=== PATIENT | female | born 1980 | race Caucasian/White ===

== ENCOUNTER 2017-07-21 07:07 | Outpatient (CLI) | payer BC | END 2017-07-21 07:08 | disposition home or self-care (01) | LOC: BICMAMMO 07:07 | PROVIDERS: ATTEND Obstetrics & Gynecology | DX: N63.10 Unspecified lump in the right breast, unspecified quadrant (principal) | CPT/HCPCS: 77066; G0204; G0279 ==

== ENCOUNTER 2017-12-08 07:47 | Outpatient (CLI) | payer BC ==
[2017-12-08] MEDS ORDERED: Gadobenate Dimeglumine 529 MG/1 ML (20ML VIAL) ONE (13:17)
== END 2017-12-08 07:48 | disposition home or self-care (01) ==
LOC: BICMRI 07:47
PROVIDERS: ATTEND Internal Medicine
DX: G43.909 Migraine, unspecified, not intractable, without status migrainosus (principal)
CPT/HCPCS: 70553; A9579

== ENCOUNTER 2019-10-20 08:21 | Outpatient (CLI) | payer BC ==
--- NOTE | 2019-10-20 09:02 | MMO ---
Bilateral MAMMO Bilat Diag [facility]. CLINICAL HISTORY: Patient is 39 years old and is seen for diagnostic exam and palpable abnormality in the right breast at 2 o'clock. The patient has the following family history of breast cancer: 2 paternal aunts. The patient has no personal history of cancer. 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 VIEWS: The views performed were: bilateral craniocaudal with tomosynthesis; bilateral mediolateral oblique with tomosynthesis; and bilateral mediolateral with tomosynthesis. FILMS COMPARED: The present examination has been compared to prior imaging studies performed at [facility] on 07/21/2017 and 10/20/2019. This study has been interpreted with the assistance of computer-aided detection. MAMMOGRAM FINDINGS: The breasts are extremely dense, which may lower the sensitivity of mammography. There is an oval mass with obscured margins seen in the upper-outer region of the right breast. This corresponds to the region of palpable concern. Sonographic interrogation of this region demonstrates findings typical for fibroadenoma. In the left breast, there are no suspicious masses, calcifications or areas of architectural distortion. IMPRESSION: MASS IN THE RIGHT BREAST IS PROBABLY BENIGN. SIX MONTH FOLLOW UP ULTRASOUND IS RECOMMENDED. THE RESULTS OF THIS EXAM WERE SENT TO THE PATIENT. ACR BI-RADS Category 3 - Probably benign finding - short interval follow-up suggested. [facility] will notify the patient of the need for additional imaging services. MAMMOGRAPHY NOTE: 1. A negative mammogram report should not delay a biopsy if a dominant of clinically suspicious mass is present. 2. Approximately 10% to 15% of breast cancers are not detected by mammography. 3. Adenosis and dense breasts may obscure an underlying neoplasm. Reported by: SADIE HARE MD Electonically Signed: [id number]
--- NOTE | 2019-10-20 09:05 | MMO ---
Right US Breast Limited Rt. CLINICAL HISTORY: Patient is 39 years old and is seen for . 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 VIEWS: The views performed were: . FILMS COMPARED: The present examination has been compared to prior imaging studies performed at [facility] on 07/21/2017 and 10/20/2019. This study has been interpreted with the assistance of computer-aided detection. RIGHT BREAST ULTRASOUND FINDINGS: There is a hypoechoic oval solid mass with circumscribed margins and normal sound transmission measuring 14 millimeters seen in the right breast at 2 o'clock. Findings are typical for fibroadenoma. IMPRESSION: SOLID MASS IN THE RIGHT BREAST IS PROBABLY BENIGN. FOLLOW-UP IN 6 MONTHS IS RECOMMENDED. THE RESULTS OF THIS EXAM WERE SENT TO THE PATIENT. ACR BI-RADS Category 3 - Probably benign finding - short interval follow-up suggested. [facility] will notify the patient of the need for additional imaging services. MAMMOGRAPHY NOTE: 1. A negative mammogram report should not delay a biopsy if a dominant of clinically suspicious mass is present. 2. Approximately 10% to 15% of breast cancers are not detected by mammography. 3. Adenosis and dense breasts may obscure an underlying neoplasm. Reported by: SADIE HARE MD Electonically Signed: [id number]
== END 2019-10-20 08:22 | disposition home or self-care (01) ==
LOC: BICMAMMO 08:21
PROVIDERS: ATTEND Obstetrics & Gynecology
DX: N63.11 Unspecified lump in the right breast, upper outer quadrant (principal)
CPT/HCPCS: 77066; G0279

== ENCOUNTER 2020-05-22 07:58 | Outpatient (CLI) | payer BC ==
--- NOTE | 2020-05-22 09:59 | ULT ---
ULTRASOUND RIGHT BREAST: HISTORY: Right breast palpable mass. COMPARISON: Ultrasound 10/20/2019. FINDINGS: Real-time, atkins scale, and color evaluation of the right breast was performed. Palpable abnormality at 2 o'clock 7 cm from the nipple superficial corresponding to a previously seen mass. This has not significantly grown and has characteristics of a benign fibroadenoma. IMPRESSION: BIRADS category 3: likely benign. Followup ultrasound and mammogram in 6 months time is recommended to confirm stability. POS: OFF
== END 2020-05-22 07:59 | disposition home or self-care (01) ==
LOC: BICULT 07:58
PROVIDERS: ATTEND Obstetrics & Gynecology
DX: N63.10 Unspecified lump in the right breast, unspecified quadrant (principal)

== ENCOUNTER 2020-12-04 08:31 | Outpatient (CLI) | payer BC | END 2020-12-04 08:32 | disposition home or self-care (01) | LOC: BICMAMMO 08:31 | PROVIDERS: ATTEND Internal Medicine | DX: N63.12 Unspecified lump in the right breast, upper inner quadrant (principal); Z80.3 Family history of malignant neoplasm of breast | CPT/HCPCS: 77066; G0279 ==

== ENCOUNTER 2021-05-10 14:40 | Outpatient (CLI) | payer BC ==
[2021-05-10 16:30] LABS: Mean Corpuscular HGB CONC 33.5 g/dL (32.0-36.0); Mean Corpuscular Hemoglobin 29.7 pg (27.0-33.0); Mean Corpuscular Volume 88.6 fl (81.6-98.3); Mean Platelet Volume 10.6 fl (7.4-10.4); Platelet Count 250 10x3/uL (150-450); RBC Distribution Width 12.6 % (11.5-14.5); Red Blood Cell (RBC) Count 4.38 10x6/uL (3.90-5.03); White Blood Cell (WBC) Count 7.7 10x3/uL (3.5-10.5)
[2021-05-10 16:33] LABS: Anion Gap 13 mmol/L (10-20); BUN (Urea Nitrogen) 13 mg/dL (7.0-18.7); Calc. Creatinine Clearance 0 mL/min (70-130); Calcium 9.9 mg/dL (7.8-10.44); Carbon Dioxide 23 mmol/L (22-29); Chloride 107 mmol/L (98-107); Glucose 90 mg/dL (70-105); Potassium 4.1 mmol/L (3.5-5.1); Sodium 139 mmol/L (136-145)
[2021-05-10 16:36] LABS: INR-International Normal Ratio 1.1; PTT 26.7 sec (22.0-33.0); Prothrombin Time 11.6 sec (9.5-12.1)
[2021-05-11 00:54] LABS: SARS-CoV-2 PCR by NAA Not Detected (NotDetected)
== END 2021-05-10 14:41 | disposition home or self-care (01) ==
LOC: LABBT 14:40
DX: Z01.812 Encounter for preprocedural laboratory examination (principal); Z20.822 Contact with and (suspected) exposure to COVID-19; N20.1 Calculus of ureter; R35.0 Frequency of micturition
CPT/HCPCS: 80048; 81001; 85027; 85610; 85730; 87086; U0003; U0005

== ENCOUNTER 2021-05-15 08:09 | Day surgery (SDC) | payer BC ==
[2021-05-14 10:42] VITALS: BMI 29.6
[2021-05-15] MEDS ORDERED: Levofloxacin 500 mg/D5W 100 ml Premix Bag ONE (08:50)
[2021-05-15] MEDS ORDERED: Fentanyl 100 MCG/2 ML VIAL ONE ×2 (11:45→13:22)
[2021-05-15] MEDS ORDERED: Midazolam HCl 2 mg/2 ml Vial ONE (11:45)
[2021-05-15] MEDS ORDERED: Iothalamate Meglumine 60% 50 ML VIAL FS ONE (11:46)
[2021-05-15] MEDS ORDERED: Lidocaine 1% PF 5 ML VIAL ONE (11:57)
[2021-05-15] MEDS ORDERED: Dexamethasone 20 MG/5 ML VIAL ONE (11:57)
[2021-05-15] MEDS ORDERED: Ondansetron PF 4 MG/2 ML Vial ONE ×2 (11:57→14:59)
[2021-05-15] MEDS ORDERED: PROPOFOL 200 MG/20 ML VIAL ONE (11:57)
[2021-05-15] MEDS ORDERED: Oxybutynin 5 MG TAB ONE (13:11)
[2021-05-15] MEDS ORDERED: Phenazopyridine HCl 100 MG TAB ONE (13:12)
[2021-05-15] MEDS ORDERED: Promethazine HCl 25 MG/ML VIAL ONE (13:23)
[2021-05-15] MEDS ORDERED: HYDROcodone/Acetaminophen 5/325 mg Tablet ONE (14:51)
[2021-05-15] MEDS ORDERED: Scopolamine 1.5 mg/72 hour Patch ONE (15:57)
[2021-05-15] MEDS ORDERED: Ketorolac Tromethamine 30 MG/ML VIAL ONE (15:57)
[2021-05-15] MEDS ORDERED: traMADol HCl 50 MG TAB ONE (16:09)
== END 2021-05-15 16:30 | disposition home or self-care (01) ==
LOC: SDC 08:09
PROVIDERS: ATTEND Urology
PROC: 0T768DZ Dilation of Right Ureter with Intraluminal Device, Via Natural or Artificial Opening Endoscopic (ICD-10-PCS; principal; 2021-05-15)
PROC: 0TC38ZZ Extirpation of Matter from Right Kidney Pelvis, Via Natural or Artificial Opening Endoscopic (ICD-10-PCS; principal; 2021-05-15)
DX: N20.2 Calculus of kidney with calculus of ureter (principal); G43.709 Chronic migraine without aura, not intractable, without status migrainosus; Z79.899 Other long term (current) drug therapy; Z88.8 Allergy status to other drugs, medicaments and biological substances
CPT/HCPCS: 74018; 74420; 82365; 88300; C2617; J1100; J1885; J1956; J2250; J2405; J2550; J2704; J3010; Q9961

== ENCOUNTER 2021-12-13 10:25 | Outpatient (CLI) | payer BC | END 2021-12-13 10:26 | disposition home or self-care (01) | LOC: BICMAMMO 10:25 | PROVIDERS: ATTEND Internal Medicine | DX: N63.12 Unspecified lump in the right breast, upper inner quadrant (principal) | CPT/HCPCS: 77066; G0279 ==

== ENCOUNTER 2022-09-26 08:51 | Outpatient (CLI) | payer BC | END 2022-09-26 08:52 | disposition home or self-care (01) | LOC: BICRAD 08:51 | PROVIDERS: ATTEND Family Medicine | DX: N20.0 Calculus of kidney (principal) | CPT/HCPCS: 74018 ==

== ENCOUNTER 2023-09-16 11:23 | Outpatient (CLI) | payer BC | END 2023-09-16 11:24 | disposition home or self-care (01) | LOC: SCSRAD 11:23 | PROVIDERS: ATTEND Urology | DX: N20.0 Calculus of kidney (principal); R35.0 Frequency of micturition | CPT/HCPCS: 74018 ==

== ENCOUNTER 2023-09-25 15:29 | Outpatient (CLI) | payer BC | END 2023-09-25 15:30 | disposition home or self-care (01) | LOC: BICMAMMO 15:29 | PROVIDERS: ATTEND Internal Medicine | DX: Z12.31 Encounter for screening mammogram for malignant neoplasm of breast (principal); Z80.3 Family history of malignant neoplasm of breast | CPT/HCPCS: 77063; 77067 ==